=== PATIENT | female | born 1940 | race African-American/Black ===

== ENCOUNTER → 2019-08-06 | Outpatient (CLI) | payer BC ==
[~2019-08-06] MED LIST: ASPIRIN325; ATENOLOL 100MG100 M2 PO; BACTRIM DS TAB1 EACH PO; CALCIUM500 MG PO; FISH OIL 1,001000 M2 PO; IBUPROFEN 600600 M1 OR; IMDUR 60 MG TAB60 M1 PO; LISINOPRIL20 MG PO; NORVASC10 MG PO; OXYCODONE HCL 55 MG PO; PROMETHAZINE-C120 ML PO; PROVENTIL HFA6.7 G1 INH; VITAMIN D1000 UNI1 PO; ZANTAC 150MG T150 M1 PO; ZPAK PO
== END ==
LOC: SJCVCIMAG 09:22
PROVIDERS: ATTEND Internal Medicine
DX: I65.23 Occlusion and stenosis of bilateral carotid arteries (principal); I08.3 Combined rheumatic disorders of mitral, aortic and tricuspid valves; I11.9 Hypertensive heart disease without heart failure; I73.9 Peripheral vascular disease, unspecified; I70.1 Atherosclerosis of renal artery; E78.5 Hyperlipidemia, unspecified; Z87.891 Personal history of nicotine dependence

== ENCOUNTER → 2020-05-30 | Outpatient (CLI) | payer BC | LOC: SJCVC 11:17 | PROVIDERS: ATTEND Internal Medicine | DX: R94.31 Abnormal electrocardiogram [ECG] [EKG] (principal); I45.10 Unspecified right bundle-branch block; I49.1 Atrial premature depolarization; I25.10 Atherosclerotic heart disease of native coronary artery without angina pectoris; I65.23 Occlusion and stenosis of bilateral carotid arteries; I10 Essential (primary) hypertension; E78.5 Hyperlipidemia, unspecified; M19.90 Unspecified osteoarthritis, unspecified site; J84.9 Interstitial pulmonary disease, unspecified; I70.1 Atherosclerosis of renal artery; M06.9 Rheumatoid arthritis, unspecified; I70.208 Unspecified atherosclerosis of native arteries of extremities, other extremity; Z87.891 Personal history of nicotine dependence; Z79.899 Other long term (current) drug therapy ==

== ENCOUNTER → 2020-08-20 | Outpatient (CLI) | payer BC | LOC: SJCVC 11:23 | PROVIDERS: ATTEND Internal Medicine | DX: R94.31 Abnormal electrocardiogram [ECG] [EKG] (principal); I45.10 Unspecified right bundle-branch block; I25.10 Atherosclerotic heart disease of native coronary artery without angina pectoris; I10 Essential (primary) hypertension; E78.5 Hyperlipidemia, unspecified; M19.90 Unspecified osteoarthritis, unspecified site; J84.9 Interstitial pulmonary disease, unspecified; Z95.5 Presence of coronary angioplasty implant and graft; I73.9 Peripheral vascular disease, unspecified; M06.9 Rheumatoid arthritis, unspecified; I65.23 Occlusion and stenosis of bilateral carotid arteries; Z98.890 Other specified postprocedural states; Z82.49 Family history of ischemic heart disease and other diseases of the circulatory system; Z88.0 Allergy status to penicillin; Z88.8 Allergy status to other drugs, medicaments and biological substances; Z79.82 Long term (current) use of aspirin; Z79.899 Other long term (current) drug therapy; Z87.891 Personal history of nicotine dependence ==

== ENCOUNTER 2020-09-23 14:19 | Inpatient (IN) | payer BC ==
[~2020-09-23] VITALS: Ht 152.4 cm; Wt 35.8 kg
[2020-09-23 14:24] VITALS: BP 140/72
[2020-09-23 15:20] LABS: ABSOLUTE NEUTROPHILS 8.9 thou/uL (1.4-8.2); BASOPHILS 0.5 % (0.0-2.0); EOSINOPHILS 0.5 % (0.0-3.0); HEMOGLOBIN 7.4 gm/dL (12.0-15.0); MCH 24.4 pg (26.0-34.0); MCV 78.8 fL (80.0-100.0); MONOCYTES 8.7 % (1.0-8.0); PLATELET COUNT 345 thou/uL (150-400); POLYS 77.3 % (36.0-66.0); RBC 3.04 mil/uL (4.20-5.00); RDW 21.2 % (10.5-14.5); WBC 11.5 thou/uL (4.0-11.0)
[2020-09-23 15:31] LABS: CALCIUM 8.3 mg/dL (8.5-10.1); CREATININE 2.7 mg/dL (0.6-1.0); POTASSIUM 4.4 mmol/L (3.5-5.1)
[2020-09-23 15:38] LABS: TOTAL BILIRUBIN 0.4 mg/dL (0.2-1.0); TOTAL PROTEIN 7.9 g/dL (6.4-8.2)
[2020-09-23 15:53] LABS: ANISOCYTOSIS 2+; PLATELET ESTIMATE NORMAL
--- NOTE | 2020-09-23 16:02 | EKG ---
[place] [address] [place] [address] ELECTROCARDIOGRAM REPORT Name: STORM AYERS Room #: [facility] [id number] Admission: 09/23/20 Attend Phys: Discharge: Date of : 44 Report #: [id number] [facility] ED Test Date: 2020-09-23 Test Time: 15:18:37 Pat Name: STORM AYERS Department: Room: Gender: F Lamination Assembler: JOSUÉ : 1940 Requested By: Kaleb Dozier Order Number: [id number] MD: Gabriel Price Measurements Intervals [place] Rate: 97 P: 66 [place]: 120 QRS: -86 QRSD: 120 T: -9 QT: 371 QTc: 472 Interpretive Statements Sinus rhythm Probable left atrial enlargement IRBBB and LPFB Compared to ECG 06/12/2013 11:02:14 Left posterior fascicular block now present Incomplete right bundle-branch block now present T-wave abnormality no longer present Electronically Signed On 09-23-2020 16:02:43 CDT by Gabriel Price [email or web address] <ELECTRONICALLY SIGNED> By: Gabriel Price MD, [facility] 09/23/20 1602 1518 1518 Gabriel Price MD, [facility] /EPI
[2020-09-23 16:29] LABS: URINE BILIRUBIN NEGATIVE (Negative); URINE BLOOD NEGATIVE (Negative); URINE CLARITY SL CLOUDY; URINE COLOR YELLOW; URINE GLUCOSE-RANDOM* NEGATIVE (Negative); URINE KETONES NEGATIVE (Negative); URINE LEUKOCYTES-REFLEX NEGATIVE (Negative); URINE NITRITE-REFLEX NEGATIVE (Negative); URINE PROTEIN (DIPSTICK) 1+ (Negative); URINE UROBILINOGEN 0.2 E.U./dl (0.2-1.0)
[2020-09-23 16:43] LABS: AMORPHOUS URATES Many /LPF (None Seen); BACTERIA-REFLEX 1-9 Few /HPF (None Seen); SQUAMOUS 0-3 Few /LPF (0-3); URINE RBC 1-2 Rare /HPF (NONE SEEN); URINE WBC-REFLEX 0-5 Rare /HPF (0-5)
[2020-09-23 19:29] LABS: % SATURATION 11 % (20-39); IRON 11 ug/dL (50-170); TIBC 97 ug/dL (250-450)
[2020-09-23 19:58] LABS: FOLIC ACID 12.3 ng/mL (8.6-58.9)
[2020-09-23 22:20] VITALS: BP 151/71
[2020-09-23 22:41] VITALS: BP 122/65
[2020-09-24] VITALS (7 sets, daily range): BP systolic 93–164; BP diastolic 55–85
--- NOTE | 2020-09-24 02:56 | NUR ---
BEDSIDE REPORT RECEIVED FROM ED NURSE HARVINDER. PT TRANSFERRED TO UNIT WITH NO SIGNS OF RESPIRATORY DISTRESS. PT AAOX3, C/O DRY COUGH AND HEARTBURN. VITAL SIGNS STABLE AND FALL PREVENTION INTERVENTIONS IN PLACE. PLAN OF CARE EXPLAINED TO PT AND VERBALIZE UNDERSTANDING.
[2020-09-24 03:34] LABS: ABSOLUTE NEUTROPHILS 6.4 thou/uL (1.4-8.2); EOSINOPHILS 1.1 % (0.0-3.0); HEMATOCRIT 21.1 % (37.0-47.0); HEMOGLOBIN 6.8 gm/dL (12.0-15.0); MCHC 32.3 g/dL (28.0-37.0); RBC 2.73 mil/uL (4.20-5.00)
[2020-09-24 03:35] LABS: BASOPHILS 0.7 % (0.0-2.0); LYMPHOCYTES 15.6 % (24.0-44.0); MCV 77.5 fL (80.0-100.0); MONOCYTES 9.8 % (1.0-8.0); PLATELET COUNT 277 thou/uL (150-400); POLYS 72.8 % (36.0-66.0); RDW 21.5 % (10.5-14.5); WBC 8.8 thou/uL (4.0-11.0)
[2020-09-24 04:01] LABS: CALCIUM 7.8 mg/dL (8.5-10.1); CREATININE 2.3 mg/dL (0.6-1.0); MAGNESIUM 1.8 mg/dL (1.8-2.4); TROPONIN-I 0.06 ng/mL (<0.06)
--- NOTE | 2020-09-24 08:42 | EKG ---
[place] [address] [facility] [place] [address] ELECTROCARDIOGRAM REPORT Name: STORM AYERS Room #: 218-P ADM IN M.R.#: [id number] Admission: 09/23/20 Attend Phys: Tang Santoro MD Discharge: Date of : 44 Report #: [id number] [facility] Test Date: 2020-09-24 Test Time: 07:45:58 Pat Name: STORM AYERS Department: Room: 218 P Gender: F Chief Gauger: WERNER : 1940 Requested By: Eleni Toney Order Number: [id number] MD: Ivan Buckley Measurements Intervals [place] Rate: 104 P: 67 DC: 128 QRS: -74 QRSD: 113 T: -8 QT: 369 QTc: 486 Interpretive Statements Sinus tachycardia Atrial premature complex IRBBB and LPFB Borderline prolonged QT interval Compared to ECG 09/23/2020 15:18:37 Atrial premature complex(es) now present Electronically Signed On 09-24-2020 8:42:12 CDT by Ivan Buckley [email or web address] <ELECTRONICALLY SIGNED> By: Ivan Buckley MD, [facility] 09/24/20 0842 Ivan Buckley MD, [facility] /EPI
--- NOTE | 2020-09-24 17:46 | NUR ---
Case opened to follow for dc planning. Yard Warehouse Worker visited with the pt and her dtr Jordana at bedside. The pt is a&x3 but forgetful. She indicates that she was on service with [facility] prior to admission. She has a rwalker and cane at home. Her gson and dtr are staying with her. She can stay on the main level and has a couple of steps in from the garage. She is being treated for acute copd/chf/anemia with hgb 6.8. Therapy evals are pending. Pt getting blood tx today and EGD tomorrow. She is being seen by ST and they recommended a video swallow but mech soft with thin liquids with supervision. She has had multiple hospital stays at [facility] in the past few months. Her pcp is Dr. [place] Farmer. [facility] accept for readmission [place]. Pt does not want to go to SNF. Dtr calling to verify her [employer] medicare info as the cards in her wallet have . [place] [id number] was provided by the dtr and passed on to UR for admitting to verify. Will f/u should snf be recommended.
--- NOTE | 2020-09-24 20:35 | NUR ---
ASSESSMENT CHARTED - MEDS PER MAR - NO CO'S OF NAUSEA - STATED RIGHT WRIST AREA HURTS IF TOUCHED. PT INCONTINET OF URINE - MEPILEX TO SACRAL AREA RENAL ULTRASOUND COMPLETED. CONSULTS NOTED. PT WITH NO STOOL TO SEND TO LAB AND IS INCONT URINE. PT WITH HG 6.8 TRANSFUED 1 UNIT OF PRBC - PT TOLERATD WELL. EATING ONLY SMALL AMOUNTS OF FOOD - STATES NOT VERY HUNGRY. IV FLUIDS CONT ORDERED - DAUGHTER AT THE BEDSIDE. NO CO'S AT THE PRESENT TIME.
[2020-09-25 03:03] LABS: HEMATOCRIT 24.5 % (37.0-47.0); MCH 26.5 pg (26.0-34.0); MCHC 32.6 g/dL (28.0-37.0); MCV 81.4 fL (80.0-100.0); RBC 3.01 mil/uL (4.20-5.00); RDW 20.7 % (10.5-14.5); WBC 7.9 thou/uL (4.0-11.0)
[2020-09-25 03:30] LABS: ALBUMIN 1.6 g/dL (3.4-5.0); CALCIUM 7.6 mg/dL (8.5-10.1); CREATININE 2.2 mg/dL (0.6-1.0); PHOSPHORUS 3.1 mg/dL (2.5-4.9); POTASSIUM 4.1 mmol/L (3.5-5.1)
[2020-09-25 04:00] VITALS: BP 113/70
--- NOTE | 2020-09-25 06:36 | NUR ---
PATIENT REMAINS A/OX4. DENIES PAIN. SOA.N/V, DAUGHTER AT THE BEDSIDE. AFEBRILE.VSS. INCONTINENT. BATH GIVEN. DENIES NEEDS. WILL KEEP MONITORING.
--- NOTE | 2020-09-25 08:05 | EKG ---
[place] [address] [facility] [place] [address] ELECTROCARDIOGRAM REPORT Name: STORM AYERS Room #: 218-P ADM IN M.R.#: [id number] Admission: 09/23/20 Attend Phys: Tang Santoro MD Discharge: Date of : 42 Report #: [id number] [facility] Test Date: 2020-09-25 Test Time: 07:32:44 Pat Name: STORM AYERS Department: Room: 218 P Gender: F Vessel Slag Worker: FANG : 1940 Requested By: Ivan Buckley Order Number: [id number] MD: Ivan Buckley Measurements Intervals [place] Rate: 94 P: 57 [place]: 129 QRS: -70 QRSD: 117 T: -5 QT: 376 QTc: 471 Interpretive Statements Sinus rhythm IRBBB and LPFB Inferior infarct, old Baseline wander in lead(s) II,aVR,aVF Compared to ECG 09/24/2020 07:45:58 Atrial premature complex(es) no longer present Electronically Signed On 09-25-2020 8:05:34 CDT by Ivan Buckley [email or web address] <ELECTRONICALLY SIGNED> By: Ivan Buckley MD, [facility] 09/25/20 0805 0732 Ivan Buckley MD, [facility] /EPI
[2020-09-25 08:53] VITALS: BP 155/70
[2020-09-25 12:19] VITALS: BP 145/73
[2020-09-25 13:48] LABS: URINE BILIRUBIN NEGATIVE (Negative); URINE BLOOD NEGATIVE (Negative); URINE CLARITY CLEAR; URINE COLOR YELLOW; URINE GLUCOSE-RANDOM* NEGATIVE (Negative); URINE KETONES NEGATIVE (Negative); URINE LEUKOCYTES TRACE (Negative); URINE NITRITE NEGATIVE (Negative); URINE PROTEIN (DIPSTICK) TRACE (Negative); URINE UROBILINOGEN 0.2 E.U./dl (0.2-1.0)
[2020-09-25 13:54] LABS: URINE CREATININE-RANDOM* 103.1 mg/dL; URINE PROTEIN-RANDOM* 78.3 mg/dL (<11.9)
[2020-09-25 17:16] VITALS: BP 165/73
--- NOTE | 2020-09-25 18:28 | NUR ---
F/u dc planning visit with pt and dtr at bedside. Pt sleeping off/on. Dtr provided updated ins info which was passed on to UR/admitting for verification of her [employer] medicare plan [id number]. SNF referrals discussed. Pt is very weak and dtr indicates family is not able to provide for her care needs. They would like to consider [facility] and maybe [facility] or [facility]. Referral faxed to [facility] and onsite visit requested for tomorrow. Will follow.
[2020-09-25 19:34] VITALS: BP 161/57
--- NOTE | 2020-09-25 19:59 | NUR ---
ASSESSMENT CHARTED - MEDS PER MAR - JUAREZ ONLY SMALL AMOUNTS OF DIET AND FLUIDS. DOES LIKE SUPPLEMENT BEVERAGES. AMBULATED TO THE BATHROOM WITH PHYS THERAPY ASSIST. UP TO THE BSC WITH ASSIST - CONTINUES TO BE INCONTINENT AT TIMES. URIINE SPEC SENT TO LAB. MEPILEX TO SACRUM CAME OFF REDDENED AREA PRESENT. PT GIVEN COUGH MED THIS AM WHICH SHE STATES DID NOT HELP. FLUIDS D/C'D AND NORVASC DECREASED TO 5 MGS DOSE - DAUGHTER AT THE BEDSIDE FOR MOST OF THE DAY. NO CO'S AT THE PRESENT TIME.
--- NOTE | 2020-09-26 00:58 | NUR ---
0010 SPOKE WITH DAUGHTER DESTINY FOR 10 MIN ABOUT MOMS STATUS AND AWAITING REHAB VS SNIF.
[2020-09-26 04:01] LABS: ALBUMIN 1.7 g/dL (3.4-5.0); CALCIUM 7.4 mg/dL (8.5-10.1); CREATININE 2.4 mg/dL (0.6-1.0); PHOSPHORUS 3.8 mg/dL (2.5-4.9); POTASSIUM 4.7 mmol/L (3.5-5.1)
[2020-09-26 05:01] VITALS: BP 155/77
--- NOTE | 2020-09-26 05:30 | NUR ---
SLEPT MOST OF SHIFT. DENIES COMPLAINTS OF PAIN. STATES IS TIRED. WORKING ON GOALS AND PLAN OF CARE FOR NOC. ASSISTED UP TO COMODE WITH ASSIST OF ONE NEEDED. DENIES NEED FOR COUGH MEDICATION. CONTINUE TO ASSSTEPH BURCIAGA.
[2020-09-26 08:00] VITALS: BP 110/60
--- NOTE | 2020-09-26 11:27 | NUR ---
[facility] HERE AND HAS ACCEPTED THE PT FOR SNF PENDING INS AUTH. THEY ARE SUBMITTING TODAY. CLINICAL PROVIDED. THEY CAN ACCEPT OVER THE WEEKEND IF AUTH OBTAINED OTHER ISAACS ON TUESDAY.
[2020-09-26 11:40] VITALS: BP 137/55
--- NOTE | 2020-09-26 16:48 | NUR ---
ASSUMED CARE SHIFT CHANGE. VSS, DENIES PAIN .O2 SATS WNL 1-2L. PT UP WITH PHYS THERAPY JUAREZ WELL. DAUGHTER VISITED WITH PT. AT APPROX 1230 PT AND DAUGHTER REPORTED TO MANAGER OUTREACH MISSING MONEY FROM PT'S PURSE. RISK MANAGEMENT NOTIFIED. PUBLIC SAFETY NOTIFIED. PT SKIN INTACT, ZGUARD APPLIED TO BOTTOM FOR SKIN PROTECTION. CURRENTLY LYING AWAKE IN BED, DAUGHTER AT BEDSIDE DISCUSSING WITH CUTTER OPERATOR. CONT POC. WILL PASS REPORT TO NOC RN.
[2020-09-26 20:44] VITALS: BP 120/58
[2020-09-27 04:32] LABS: ALBUMIN 1.6 g/dL (3.4-5.0); CALCIUM 7.1 mg/dL (8.5-10.1); CREATININE 2.9 mg/dL (0.6-1.0); PHOSPHORUS 3.2 mg/dL (2.5-4.9); POTASSIUM 4.7 mmol/L (3.5-5.1)
[2020-09-27 04:46] LABS: HEMATOCRIT 22.5 % (37.0-47.0); HEMOGLOBIN 7.4 gm/dL (12.0-15.0); MCH 26.9 pg (26.0-34.0); MCHC 32.8 g/dL (28.0-37.0); MCV 82.2 fL (80.0-100.0); RBC 2.74 mil/uL (4.20-5.00); RDW 22.1 % (10.5-14.5); WBC 10.9 thou/uL (4.0-11.0)
[2020-09-27 05:28] VITALS: BP 144/74
[2020-09-27 09:39] VITALS: BP 147/59
[2020-09-27 12:00] VITALS: BP 140/59
[2020-09-27 16:33] VITALS: BP 126/56
[2020-09-27 19:25] VITALS: BP 143/55
--- NOTE | 2020-09-27 19:47 | NUR ---
RN ASSUMED PT'S CARE AT 0700-1900PM, PT IS A&OX4, PT IS ON O2 1L/MIN/NC, PT'S VS ARE STABLE, PT IS CONTINUING IV ABX, PT DENIES PAIN AND SOB, BUT PT STILL IS WEAK, PT NEEDS HELP ADL. PT MAY DC TO SNF TOMORROW.
[2020-09-28 03:05] VITALS: BP 125/68
[2020-09-28 04:10] LABS: ALBUMIN 1.6 g/dL (3.4-5.0); CALCIUM 7.2 mg/dL (8.5-10.1); CREATININE 2.9 mg/dL (0.6-1.0); PHOSPHORUS 2.7 mg/dL (2.5-4.9); POTASSIUM 4.9 mmol/L (3.5-5.1)
[2020-09-28 07:48] VITALS: BP 168/85
--- NOTE | 2020-09-28 08:01 | NUR ---
SLEPT MOST OF SHIFT. ASSIST UP TO COMODE NEEDED. WORKING ON GOALS AND PLAN OF CARE FOR NOC. CONTINUE TO ASSES.
[2020-09-28 11:21] VITALS: BP 160/76
[2020-09-28] MEDS ORDERED: CARVEDILOL25 MG PO (13:26)
[2020-09-28] MEDS ORDERED: PROTONIX 20 MG20 M1 PO (13:26)
[2020-09-28] MEDS ORDERED: PREDNISONE 10 M10 MG PO (13:26)
--- NOTE | 2020-09-28 17:04 | NUR ---
assumed care of pt at 0700. pt aox4 weak no acute distress. maintains spo2 on room air. notified of bed availability at [facility]. ok for discharge per hospitalist. report called to gerardo at [facility] SNF.
== END 2020-09-28 17:20 | DRG 811 ==
LOC: ER 14:19 → 2N 18:30 → EROBS 18:30 → 2N 22:57
PROVIDERS: Hospitalist; Internal Medicine; Nurse Practitioner; ADMIT Hospitalist; ATTEND Hospitalist
PROC: 30233N1 Transfusion of Nonautologous Red Blood Cells into Peripheral Vein, Percutaneous Approach (ICD-10-PCS; principal; 2020-09-24)
DX: D50.0 Iron deficiency anemia secondary to blood loss (chronic) (principal); J18.9 Pneumonia, unspecified organism; N17.9 Acute kidney failure, unspecified; I13.0 Hypertensive heart and chronic kidney disease with heart failure and stage 1 through stage 4 chronic kidney disease, or unspecified chronic kidney disease; E78.5 Hyperlipidemia, unspecified; I25.10 Atherosclerotic heart disease of native coronary artery without angina pectoris; M06.9 Rheumatoid arthritis, unspecified; I73.9 Peripheral vascular disease, unspecified; N18.9 Chronic kidney disease, unspecified; R77.8 Other specified abnormalities of plasma proteins; R53.81 Other malaise; I50.9 Heart failure, unspecified; N39.41 Urge incontinence; R13.10 Dysphagia, unspecified; D86.89 Sarcoidosis of other sites; I70.1 Atherosclerosis of renal artery; Z20.822 Contact with and (suspected) exposure to COVID-19; Z79.899 Other long term (current) drug therapy; Z79.82 Long term (current) use of aspirin; Z95.5 Presence of coronary angioplasty implant and graft; Z88.0 Allergy status to penicillin
CPT/HCPCS: 10081

== ENCOUNTER → 2020-11-28 | Outpatient (CLI) | payer OTHER, BC ==
[~2020-11-28] MED LIST changes: +CARVEDILOL25 MG PO; +PREDNISONE 10 M10 MG PO; +PROTONIX 20 MG20 M1 PO
== END ==
LOC: SJCVCIMAG 07:55
PROVIDERS: ATTEND Internal Medicine
DX: I08.3 Combined rheumatic disorders of mitral, aortic and tricuspid valves (principal); I25.10 Atherosclerotic heart disease of native coronary artery without angina pectoris; I10 Essential (primary) hypertension; E78.5 Hyperlipidemia, unspecified; M19.90 Unspecified osteoarthritis, unspecified site; J84.9 Interstitial pulmonary disease, unspecified; Z87.891 Personal history of nicotine dependence; Z79.899 Other long term (current) drug therapy; Z88.0 Allergy status to penicillin; Z88.8 Allergy status to other drugs, medicaments and biological substances

== ENCOUNTER 2020-12-23 11:10 | Inpatient (IN) | payer MEDICARE ==
[~2020-12-23] VITALS: Ht 162.6 cm; Wt 47.1 kg
--- NOTE | ~2020-12-23 | EEG ---
[facility] [place] [address] ELECTROENCEPHALOGRAM Name: STORM AYERS Room #: 241-P [facility] IN M.R.#: [id number] Admission: 12/23/20 Attend Phys: Sury Manzanares MD Discharge: Date of : 42 Report #: [id number] THIS REPORT FOR: //name// DATE OF SERVICE: 12/29/2020 This patient is being evaluated for altered mental status. EEG was done by placing the electrode by standard 10-20 system of electrode placement. Both referential and sequential montages were used for recording. Background activity in this patient's EEG was about 6-7 Hz and many times it is slower than that. It is about 15-20 microvolts. No active epileptiform activity was noticed. Photic stimulation is unremarkable. IMPRESSION: This is an abnormal EEG because it is disorganized and poorly formed. That is the nonspecific finding which can occur with encephalopathy, effect of psychotropic medication, dementia, etc. Clinical correlation is recommended. By: 1456 1519 Star Scanlon MD /nt
[2020-12-23 11:10] VITALS: BP 194/110
[2020-12-23 11:50] LABS: ABSOLUTE NEUTROPHILS 7.5 thou/uL (1.4-8.2); BASOPHILS 0.5 % (0.0-2.0); EOSINOPHILS 0.1 % (0.0-3.0); HEMATOCRIT 26.9 % (37.0-47.0); HEMOGLOBIN 8.5 gm/dL (12.0-15.0); LYMPHOCYTES 7.3 % (24.0-44.0); MCH 27.1 pg (26.0-34.0); MCHC 31.5 g/dL (28.0-37.0); MONOCYTES 7.5 % (1.0-8.0); PLATELET COUNT 278 thou/uL (150-400); POLYS 84.6 % (36.0-66.0); RBC 3.13 mil/uL (4.20-5.00); RDW 16.6 % (10.5-14.5); WBC 8.8 thou/uL (4.0-11.0)
[2020-12-23 12:00] LABS: CALCIUM 8.6 mg/dL (8.5-10.1); POTASSIUM 4.4 mmol/L (3.5-5.1)
[2020-12-23 12:13] LABS: ALBUMIN 2.4 g/dL (3.4-5.0); TOTAL BILIRUBIN 0.6 mg/dL (0.2-1.0); TOTAL PROTEIN 8.5 g/dL (6.4-8.2)
[2020-12-23 14:35] LABS: APTT 32.5 Seconds (24.5-32.8); INR 1.13; PROTIME 12.2 Seconds (10.5-12.1)
[2020-12-23 15:21] LABS: % SATURATION 16 % (20-39); IRON 31 ug/dL (50-170); TIBC 193 ug/dL (250-450)
[2020-12-23 17:19] VITALS: BP 161/90
[2020-12-23 17:25] VITALS: BP 161/95
[2020-12-23 18:06] VITALS: BP 178/110; BP 1786/10
--- NOTE | 2020-12-23 19:02 | NUR ---
Patient arrived to the unit at approximtely 1600. She is alert and oriented. She arrived on the unit with a heparin drip. Patient reports that she is incontinent sometimes. Patient is weak and appears to be short of breath. Patient reports that she is having chest pain. Nitro given per order. Patient will continue to be monitored.
[2020-12-23 20:01] VITALS: BP 178/92
[2020-12-24] VITALS (13 sets, daily range): BP systolic 70–185; BP diastolic 43–101
[2020-12-24 06:51] LABS: HEMOGLOBIN 6.9 gm/dL (12.0-15.0); LYMPHOCYTES 5.7 % (24.0-44.0)
[2020-12-24 06:53] LABS: ABSOLUTE NEUTROPHILS 6.3 thou/uL (1.4-8.2); BASOPHILS 0.3 % (0.0-2.0); HEMATOCRIT 21.2 % (37.0-47.0); MCHC 32.4 g/dL (28.0-37.0); MCV 86.2 fL (80.0-100.0); MONOCYTES 2.7 % (1.0-8.0); PLATELET COUNT 227 thou/uL (150-400); POLYS 91.3 % (36.0-66.0); RBC 2.46 mil/uL (4.20-5.00); RDW 16.9 % (10.5-14.5); WBC 6.9 thou/uL (4.0-11.0)
[2020-12-24 06:54] LABS: CALCIUM 7.9 mg/dL (8.5-10.1); CREATININE 4.3 mg/dL (0.6-1.0); POTASSIUM 5.2 mmol/L (3.5-5.1)
[2020-12-24 06:55] LABS: MAGNESIUM 2.2 mg/dL (1.8-2.4)
--- NOTE | 2020-12-24 07:30 | NUR ---
Dr. Dillon called back for consult at shift change and will see pt. Pt. able to answer orientation questions. Luz Maria Silveira visited last night. Pt. does not remember home meds, unable to verify. Luz Maria Silveira will bring list today . MRSA swab sent to lab.O2 at 2L/NC with O2 sat in the upper 90's to 100%. She does get short of breath with exertion. Critical lactic acid called to MOTEL MAID. Pt. has been afebrile. Denies chest pain thougn c/o right arm pain stating it might be her arthritis. Wrapped with warm blanket and stated it helped. Kept NPO until seen by ST. Oral care given and lip moisturizer provided to pt. C/O nausea , zofran given x 1 with good relief. No c/o since. ST per tele at beginning of shift with elevated BP. Scheduled IV metoprolol and ntg paste given. SR in the 80's after tx. Incontinent of small amount of urine and had small amount of bm in brief around 2230. Lr cath placed for accurate I/O. Low urine output this shift , emptied 25 ml. MOTEL MAID notified. NS 500 bolus over 2 hrs given this am. IV on right AC leaking. Left AC IV came out and bleeding. New IV on right FA started and am labs drawn and sent to lab. Assisted to reposition for comfort. Pt. status changed to CCT this am. Report given to 2N RN (pt. being transferred due to staffing). Transferred to room 219 with all her belongings (purse,cell phone, cane, clothes). Luz Maria Silveira called to get an update on pt. Informed her that pt. is being transferred to another floor. Left her a message per her request regarding room no. Heparin gtt. infusing , no active bleeding except when left AC IV came out. Pressure applied for few minutes then covered with gauze and wrapped with coban after hemostasis achieved. Transferred to [facility] around 0625.
--- NOTE | 2020-12-24 08:18 | NUR ---
0640 TX FROM 3W PER BED. PATIENT SETTLED IN ROOM, MONITOR ON PAST REPORT FROM 3W RN. CONTINUE TO ASSES.
--- NOTE | 2020-12-24 08:26 | EKG ---
[place] [address] [facility] [place] [address] ELECTROCARDIOGRAM REPORT Name: ADELITA AYERSIE Sayra Room #: 219-P ADM IN M.R.#: [id number] Admission: 12/23/20 Attend Phys: Sury Manzanares MD Discharge: Date of : 42 Report #: [id number] [facility] Test Date: 2020-12-23 Test Time: 11:50:27 Pat Name: STORM AYERS Department: Room: 219 Gender: F Bag Press Operator: DAJA : 1940 Requested By: Brandyn Stiles Order Number: [id number] MD: Ivan Buckley Measurements Intervals [place] Rate: 118 P: 54 [place]: 123 QRS: -61 QRSD: 82 T: -82 QT: 376 QTc: 528 Interpretive Statements Sinus tachycardia leftward axis ST and T wave abnormality Prolonged QT interval Compared to ECG 09/25/2020 07:32:44 right bundle branch block is no longer present ST and T wave abnormality is more pronounced Electronically Signed On 12-24-2020 8:26:34 CDT by Ivan Buckley [email or web address] <ELECTRONICALLY SIGNED> By: Ivan Buckley MD, [facility] 12/24/20 0826 1150 1150 Ivan Buckley MD, [facility] /EPI
--- NOTE | 2020-12-24 08:28 | EKG ---
[place] [address] [facility] [place] [address] ELECTROCARDIOGRAM REPORT Name: STORM AYERS Room #: 219-P ADM IN M.R.#: [id number] Admission: 12/23/20 Attend Phys: Sury Manzanares MD Discharge: Date of : 42 Report #: [id number] [facility] ED Test Date: 2020-12-23 Test Time: 12:23:52 Pat Name: STORM AYERS Department: Room: 219 Gender: F Splash Line Operator: DAJA : 1940 Requested By: Brandyn Stiles Order Number: [id number] MD: Ivan Buckley Measurements Intervals [place] Rate: 116 P: 59 [place]: 122 QRS: -71 QRSD: 73 T: -77 QT: 378 QTc: 526 Interpretive Statements Sinus tachycardia frequent atrial premature complexes leftward axis ST and T wave abnormality Prolonged QT interval Compared to ECG 12/23/2020 11:50:27 atrial premature complexes are now present Electronically Signed On 12-24-2020 8:28:08 CDT by Ivan Buckley [email or web address] <ELECTRONICALLY SIGNED> By: Ivan Buckley MD, [facility] 12/24/20 22 22 Ivan Buckley MD, [facility] /EPI
--- NOTE | 2020-12-24 20:03 | NUR ---
AT APPROX 1700 PATIENT STARTED TO C/O CHEST PAIN WITH PRESSURE 7/10. CARDIOLOGY MADE AWARE, ORDERS TO GIVE ORAL PAIN MEDCIATION ORDERED, NO OTHER INTERVENTION. DR HENRIQUEZ MADE AWARE OF ZERO OUTPUT FROM MAO CATHETER, ORDERS RECEIVED TO GIVE 250 ML NS BOLUS. NEPHROLOGY ALSO MADE AWARE OF ZERO URINE OUTPUT, ORDERS GIVEN TO GIVE THE 250 NS BOLUS AND CONTINUE LR THAT WAS ORDERED THROUGHTOUT THE NIGHT.
[2020-12-24 21:35] LABS: BE(vivo) -12.1 mmol/L (-2 to +3); HCO3 14.1 mmol/L (22.0-26.0); PCO2 32.9 mmHg (35.0-45.0); PO2 54.4 mmHg (80.0-100.0); sO2 83.6 % (92.0-98.0)
[2020-12-24 21:36] LABS: pH 7.249 (7.360-7.450)
[2020-12-24 21:38] LABS: ABSOLUTE NEUTROPHILS 14.2 thou/uL (1.4-8.2); BASOPHILS 0.2 % (0.0-2.0); HEMATOCRIT 25.2 % (37.0-47.0); HEMOGLOBIN 7.7 gm/dL (12.0-15.0); MCH 26.7 pg (26.0-34.0); MCHC 30.6 g/dL (28.0-37.0); MCV 87.4 fL (80.0-100.0); MONOCYTES 7.3 % (1.0-8.0); PLATELET COUNT 272 thou/uL (150-400); POLYS 87.5 % (36.0-66.0); RBC 2.88 mil/uL (4.20-5.00); RDW 16.3 % (10.5-14.5); WBC 16.2 thou/uL (4.0-11.0)
[2020-12-24 21:56] LABS: ALBUMIN 2.1 g/dL (3.4-5.0); CALCIUM 7.4 mg/dL (8.5-10.1); CREATININE 4.8 mg/dL (0.6-1.0); POTASSIUM 5.6 mmol/L (3.5-5.1); TOTAL BILIRUBIN 0.6 mg/dL (0.2-1.0); TOTAL PROTEIN 6.9 g/dL (6.4-8.2)
--- NOTE | 2020-12-24 22:29 | NUR ---
STRUCTURAL METAL FABRICATOR APPRENTICE ACTIVATED FOR HYPOTENSION, DECREASED LOC, INCREASED O2 DEMANDS AND GENERAL DECOMPENSATION. JACQUELNIE TO BEDSIDE, PT TRANSFERRED TO ICU ROOM 241 WITH BELONGINGS. PT'S FAMILY UPDATED.
--- NOTE | 2020-12-24 23:19 | NUR ---
2124 AT BEDSIDE PASSING MEDICATIONS. PATIENT TALKING WITH NURSE. SUDDENLY STARTS FLAILING ARMS SAYS HELP ME. BECOMING LESS RESPONSIVE COULD ONLY STATE NAME AND BIRTHDAY. NOTICED O2 SAT NOW 84% ON 2L. O2 INCREASED TO 4L, BP TAKEN 70/42. DRY CELL ASSEMBLY SUPERVISOR CALLED. SEE INTERVENTION FOR FURTHER DATA. DAUGHTER CALLED FOR UPDATE AND INFORMED OF RESPIRATORY DISTRESS. ON WAY TO HOSPITAL. 2149 PATIENT NOW ON 100% NRB AND TRANSFERED TO ICU BED 241. REPORT GIVEN AT BEDSIDE TO BOTTOM SANDER. DAUGHTER WAITING IN WAITING ROOM. BOTTOM SANDER WILL UPDATE.
[2020-12-25] VITALS (64 sets, daily range): BP systolic 79–174; BP diastolic 27–93
[2020-12-25 00:32] LABS: BE(vivo) -9.3 mmol/L (-2 to +3); HCO3 17.4 mmol/L (22.0-26.0); PCO2 41.6 mmHg (35.0-45.0); PO2 470.6 mmHg (80.0-100.0); sO2 99.8 % (92.0-98.0)
--- NOTE | 2020-12-25 01:34 | NUR ---
PT TRANSFERED FROM TO ICU AROUND 0, AFTER TRAP SETTER WAS ACTIVATED ON DUE TO HYPOTENSION, CHANGE IN MENTAL STATUS, AND HYPOXIA. UPON ARRIVAL, SBP 60S-70S. LEVOPHED GTT INITIATED. PT WAS INITIALLY LETHARGIC BUT ARROUSABLE TO VERBAL OR TACTILE STIMULI. UNABLE TO OBTAIN TEMPERATURE DUE TO HYPOTHERMIA. VINAY HUGGER WARMING BLANKET PLACED ON PT. PT HAD SHALLOW BREATHING BUT SPO2 STABLE ON NRB MASK. JACQUELINE VALERO NP, AT BEDSIDE. PT'S DTR BRANDAN WAS PRESENT AND UPDATED ON PT CONDITION. SHE STATED THAT HER MOTHER WOULD WANT EVERYTHING DONE TO SAVE HER, INCLUDING INTUBATION IF NEEDED. DR BOWER (RENAL) UPDATED ON PT STATUS. HE WAS AGREEABLE TO CURRENT PLAN. HE WAS INFORMED OF LOW URINE OUTPUT. MAO FLUSHED FOR PATENCY PER DR BOWER REQUEST. PT BECAME INCREASINGLY LESS RESPONSIVE AND WAS INTUBATED BY DR KEEN (ER PROVIDER). SHE TOLERATED INTUBATION WELL. JACQUELINE VALERO NP, PLACED RIGHT RADIAL ARTERIAL LINE. ARTERIAL LINE SBP 120S-140S. CVP MONITORING INITIATED PER DR RENTERIA ORDER. BILATERAL WRIST RESTRAINTS APPLIED TO PREVENT PT FROM PULLING AT ETT OR LINES. BOLIVAR PHILLIPS NOTIFIED OF POST-INTUBATION ABG RESULTS. DTLUISA GIPSON AND KEITH BOTH AT BEDSIDE AND UPDATED ON POC. WILL CONTINUE TO MONITOR FURTHER.
--- NOTE | 2020-12-25 01:44 | NUR ---
DTR BRANDAN TOOK HOME ALL OF PT BELONGINGS, INCLUDING CLOTHES, PURSE, AND CELL PHONE.
--- NOTE | 2020-12-25 05:36 | NUR ---
PT REMAINS ON LEVOPHED AND VASOPRESSIN GTTS FOR BP SUPPORT. PT GRIMACES WITH NOXIOUS STIMULI. NO EXTRA SEDATION NEEDED AT THIS TIME PT IS RESTING CALMLY IN BED AND TOLERATING VENT WELL. FIO2 TITRATED DOWN TO 50%. OGT TO LIS. MAO TO DD WITH MINIMAL URINE OUTPUT. NOT PROGRESSING WELL TOWARD POC GOALS. WILL MONITOR FURTHER AND GIVE REPORT TO ONCOMING NURSE.
[2020-12-25 05:38] LABS: BE(vivo) -4.6 mmol/L (-2 to +3); HCO3 19.3 mmol/L (22.0-26.0); PCO2 30.5 mmHg (35.0-45.0); PO2 206.4 mmHg (80.0-100.0); pH 7.419 (7.360-7.450); sO2 99.4 % (92.0-98.0)
[2020-12-25 06:19] LABS: ABSOLUTE RETIC COUNT 0.0503 10^6/uL; OBSERVED RETIC COUNT 1.87 % (0.6-2.6)
--- NOTE | 2020-12-25 07:11 | EKG ---
[place] [address] [place] [address] ELECTROCARDIOGRAM REPORT Name: STORM AYERS Room #: 241-P ADM IN M.R.#: [id number] Admission: 12/23/20 Attend Phys: Sury Manzanares MD Discharge: Date of : 44 Report #: [id number] [facility] Test Date: 2020-12-24 Test Time: 21:40:32 Pat Name: STORM AYERS Department: Room: 241 Gender: F Transfer And Pumphouse Operator: VERO : 1940 Requested By: Riri Kelly Order Number: [id number] MD: Gabriel Price Measurements Intervals [place] Rate: 62 P: 69 [place]: 122 QRS: 119 QRSD: 99 T: -82 QT: 559 QTc: 568 Interpretive Statements Sinus rhythm Multiform ventricular premature complexes Low voltage, extremity leads Abnormal R-wave progression, early transition Abnrm T, probable ischemia, anterolateral lds ST elevation, consider lateral injury Prolonged QT interval Compared to ECG 12/23/2020 12:23:52 Low QRS voltage now present Possible ischemia now present ST (T wave) deviation now present Myocardial infarct finding now present Sinus tachycardia no longer present Electronically Signed On 12-25-2020 7:11:32 CDT by Gabriel Price [email or web address] <ELECTRONICALLY SIGNED> By: Gabriel Price MD, [facility] 12/25/20710 39 39 Gabriel Price MD, [facility] /EPI
[2020-12-25 07:15] LABS: ALBUMIN 1.8 g/dL (3.4-5.0); CALCIUM 7.1 mg/dL (8.5-10.1); CREATININE 4.8 mg/dL (0.6-1.0)
--- NOTE | 2020-12-25 07:40 | NUR ---
ORDERS FOR EVAL AND TREAT HOWEVER Pt TRANSFERRED TO ICU LAST PM. WILL PLACE ON HOLD AND AWAIT NEW ORDERS WHEN APPROPRIATE
--- NOTE | 2020-12-25 08:55 | EKG ---
[place] [address] [facility] [place] [address] ELECTROCARDIOGRAM REPORT Name: STORM AYERS Room #: 241-P ADM IN M.R.#: [id number] Admission: 12/23/20 Attend Phys: Sury Manzanares MD Discharge: Date of : 44 Report #: [id number] [facility] Test Date: 2020-12-25 Test Time: 07:16:27 Pat Name: STORM AYERS Department: Room: 241 P Gender: F Embedded Systems Designer: NATASHA : 1940 Requested By: Ivan Buckley Order Number: [id number] MD: Ivan Buckley Measurements Intervals [place] Rate: 75 P: 73 [place]: 114 QRS: -35 QRSD: 123 T: 80 QT: 465 QTc: 520 Interpretive Statements Sinus rhythm Borderline short VA interval Right bundle branch block Abnormal T, probable ischemia, lateral leads Compared to ECG 12/24/2020 21:40:32 Right bundle-branch block now present Ventricular premature complex(es) no longer present Electronically Signed On 12-25-2020 8:55:45 CDT by Ivan Buckley [email or web address] <ELECTRONICALLY SIGNED> By: Ivan Buckley MD, [facility] 12/25/20 0855 5 5 Ivan Buckley MD, [facility] /EPI
--- NOTE | 2020-12-25 10:00 | NUR ---
PT SBP IS 70-80s. DR. RENTERIA ON UNIT. MAP IS GREATER THAN 60. DR. RENTERIA INSTRUCTED TO STOP FENTANYL TO SEE IF BP IMPROVES. USE VERSED IF NEEDED. NO VERSED STARTED AT THIS TIME. WILL CONTINUE TO MONITOR.
--- NOTE | 2020-12-25 11:50 | 2DMMODE ---
[facility] [place] [address] 2 D/M-MODE ECHOCARDIOGRAM Name: STORM AYERS Room #: 241-P ADM IN M.R.#: [id number] Admission: 12/23/20 Attend Phys: Sury Manzanares MD Discharge: Date of : 42 Report #: [id number] THIS REPORT FOR: cc: FAM - No family physician/PCP FAM - No family physician/PCP Iavn Buckley MD [facility] ~ APPROVED REPORT Study performed: 12/25/2020 09:55:01 EXAM: Limited 2D, Doppler, and color-flow Echocardiogram Patient Location: ICU Room #: 241 Status: routine BSA: 1.39 HR: 77 bpm BP: 113/64 mmHg Rhythm: RBBB Other Information Study Quality: Good Indications Limited echo for LV function and right heart pressures and function. (Complete echo done 11/28/20) 2D Dimensions RVDd: 33.29 mm IVSd: 13.07 (7-11mm) LVDd: 40.72 mm PWd: 12.82 (7-11mm) LVDs: 35.59 (25-40mm) Left Atrium: 39.19 (27-40mm) Aortic Valve AoV Peak Karthik.: 1.06 m/s AO Peak Gr.: 4.47 mmHg Tricuspid Valve TR Peak Karthik.: 2.43 m/s RAP Estimate: 12.00 mmHg TR Peak Gr.: 24.00 mmHg PA Pressure: 36.00 mmHg Left Ventricle [facility] [address] [place] [address] 2 D/M-MODE ECHOCARDIOGRAM Name: STORM AYERS Room #: 241-P ADM IN M.R.#: [id number] Admission: 12/23/20 Attend Phys: Sayra Monique Discharge: Date of : 42 Report #: [id number] The left ventricle is normal size. There is global hypokinesis of the left ventricle. Moderate concentric left ventricular hypertrophy. Left ventricular systolic function is severely decreased. LVEF 20%. Right Ventricle The right ventricle is normal size. Right ventricle is moderately hypokinetic. Atria Biatrial enlargement. Aortic Valve Aortic valve is trileaflet; moderately calcified. Trace aortic regurgitation. There is no aortic valvular stenosis. Mitral Valve Mitral valve leaflets are calcified. Moderate mitral annular calcification. Moderate to severe mitral regurgitation Tricuspid Valve The tricuspid valve is normal in structure. Moderate to severe tricuspid regurgitation. Estimated PAP is 35mmHg. Great Vessels The aortic root is normal in size. IVC is mildly dilated and collapses <50% with inspiration. Pericardium There is no pericardial effusion. Critical Notification Physician Notified <Conclusion> Left ventricular systolic function is severely decreased. LVEF 20%. Global LV dysfunction Biatrial enlargement. Aortic valve is trileaflet; moderately calcified. Trace aortic regurgitation, no stenosis. Mitral valve leaflets are calcified. Moderate mitral annular calcification. Moderate to severe mitral regurgitation Moderate to severe tricuspid regurgitation. Estimated pulmonary artery pressure of 35mmHg. There is no pericardial effusion. [facility] [address] [place] [address] 2 D/M-MODE ECHOCARDIOGRAM Name: ARMENSTORM M Room #: 241-P ADM IN M.R.#: [id number] Admission: 12/23/20 Attend Phys: Sayra Monique Discharge: Date of : 44 Report #: [id number] Compared to study dated November 28, 2020, severe LV dysfunction is new. Mitral regurgitation is substantially worse. <ELECTRONICALLY SIGNED> By: Ivan Buckley MD, [facility] 12/25/20 1149 1149 1149 Ivan Buckley MD, [facility] /INF
--- NOTE | 2020-12-25 12:57 | NUR ---
PT SBP ON ARTERIAL LINE REMAINED LOW. NOT A GOOD WAVEFORM OR BLOOD RETURN ON ARTERIAL LINE. PER DR. BOWER, USE AUTOMATIC BLOOD PRESSURE TO TITRATE GTTS. DR. RENTERIA WANTED FLOTRAC HOOKED UP TO PT. DR. RENTERIA THEN STARTED DOPAMINE FOR LOW SBP. DR. MYERS NOTIFIED OF POSITIVE SEPSIS SCREEN. DR. MYERS SPOKE IN DETAIL WITH PT DAUGHTER BRANDAN. A FAMILY MEETING WITH DR. MYERS IS SCHEDULED FOR 1500 TODAY. WILL CONTINUE TO MONITOR.
--- NOTE | 2020-12-25 15:34 | NUR ---
INITIAL ASSESSMENT: SW reviewed chart and spoke with nursing and attending physician. Pt was admitted from home due to hypoxia. Pt with hx of interstitial lung dx, CHF, RA, CKD stage 4. BOBBIN LOOSE END FINDER activated while pt was on CCU. Pt was transferred to ICU and is currently intubated and sedated. Discussion regarding possible transfer to [facility]. Pt is not stable for transfer. Attending physician is currently meeting with pt's family to discuss code status and plan of care. Per chart, pt lives at home. Pt has a cane and walker and has used [facility] in the past. Pt was discharged to [facility] in September from [facility]. Pt's PCP is DR. Mt Farmer. SW is following to assist as needed.
--- NOTE | 2020-12-25 16:14 | NUR ---
DR. MYERS HAD FAMILY MEETING WITH PT FAMILY. PT IS DNR AT THIS TIME. PER DR. MYERS, HOLD TAKING PT TO CT SCAN UNTIL 12/26/20 WHEN PT IS MORE STABLE. SPOKE WITH DR. RENTERIA REGARDING OUTCOME OF FAMILY MEETING. NOTIFIED DR. RENTERIA REGARDING ARTERIAL LINE NOT HAVING BLOOD RETURN OR A WAVE FORM. UNABLE TO OBTAIN ARTERIAL PRESSURE. INFOMRED DR. RENTERIA OF TITRATING VASOPRESSORS FROM BP CUFF PRESSURES. NO NEW ORDERS AT THIS TIME.
[2020-12-26] VITALS (91 sets, daily range): BP systolic 102–146; BP diastolic 55–85
--- NOTE | 2020-12-26 05:49 | NUR ---
PT FLUTTERS EYES AND MOVES ALL EXTREMETIES BUT DOES NOT FOLLOW COMMANDS. DECREASED PRESSOR REQUIREMENTS THROUGHOUT SHIFT.
[2020-12-26 06:06] LABS: HEMOGLOBIN 7.3 g/dL (11.1-15.9)
[2020-12-26 06:51] LABS: ALBUMIN 1.7 g/dL (3.4-5.0); CALCIUM 6.7 mg/dL (8.5-10.1); CREATININE 4.8 mg/dL (0.6-1.0); PHOSPHORUS 6.1 mg/dL (2.5-4.9); POTASSIUM 4.7 mmol/L (3.5-5.1)
--- NOTE | 2020-12-26 06:57 | HC ---
[facility] [place] [address] CONSULTATION Name: STORM AYERS Room #: 241-P ADM IN M.R.#: [id number] Admission: 12/23/20 Attend Phys: Sury Manzanares MD Discharge: Date of : 44 Report #: [id number] THIS REPORT FOR: cc: FAM - No family physician/PCP FAM - No family physician/PCP Isaak Patel MD ~ cc: Sury Manzanares MD, Colton Bennett MD, Ivan Buckley MD [facility], Radha Art MD, ____ ____ DATE OF SERVICE: 12/25/2020 PHYSICIAN REQUESTING: Dr. Manzanares. REASON FOR CONSULTATION: Elevated ferritin and cytopenia. HISTORY OF PRESENT ILLNESS: The patient is a 80-year-old female on the ventilator in [facility] ICU. She was admitted for shortness of breath. I also have access to some of the [facility] notes and she has been admitted there or seen in the ER multiple times for congestive heart failure and breathing troubles related to her interstitial lung disease. Here, she is currently on the ventilator. Her ferritin yesterday was 13,000, today at 17,000. Creatinine is stable at about 4.8. GGTP is normal. Transaminases are near normal. Absolute retic count is 0.05, rheumatoid factor of 310, greatly elevated C-reactive protein 289, greatly elevated total bilirubin 0.6, hemoglobin 7.7 yesterday. White count 16.2 without acute changes. It is mostly neutrophils. Platelets 272. CAT scan chest, abdomen and pelvis did not show any lymphadenopathy or hepatosplenomegaly, though there was some fluid pseudotumor type changes and also changes consistent with her known history of interstitial lung disease. It looks like she had a large gallstone, but was nonobstructing. PHYSICAL EXAMINATION: GENERAL: The patient is not bleeding. She is intubated. She has multiple central lines in place. VITAL SIGNS: Her height is 5 feet 4, 162.6 cm, weight 89 pounds or 40.4 kilograms. Recent blood pressure is 113/64, respirations 24, O2 sat 100% on the ventilator, temperature 97.5 axillary. HEENT: Face appears symmetric. No blood from nose or mouth or ears or central line insertions. LUNGS: Somewhat coarse bilaterally. HEART: Regular rate. ABDOMEN: No masses, not bloated. EXTREMITIES: Without clubbing, cyanosis or edema. PAST MEDICAL HISTORY: Notable for the history of hypertension, coronary artery disease, rheumatoid arthritis, peripheral vascular disease, interstitial lung [address] [address] CONSULTATION Name: STORM AYERS Room #: 241-P [facility] IN M.R.#: [id number] Admission: 12/23/20 Attend Phys: Sury Manzanares MD Discharge: Date of : 44 Report #: [id number] disease and chronic kidney disease. She is also reported to have carotid stenosis in the past, also dyslipidemia, also gout. Also, past myocardial infarction and a tubal ligation. SOCIAL HISTORY: She is , has four children. Former smoker, quit in 1985. No smokeless tobacco. Alcohol, yes, 1-2 times per week in the past. This is per the [facility] chart. FAMILY HISTORY: Mother with heart disease. Mother with hypothyroidism. Father had a heart attack. Sister and brother both had goiters. CURRENT MEDICATIONS: In the hospital include pantoprazole 20 mg daily IV, fentanyl IV, midazolam p.r.n., vasopressin drip as needed, sodium bicarbonate IV norepinephrine drip p.r.n., vancomycin 500 mg q.24, aspirin 81 daily. Received flu vaccine on 12/24/2020, oxycodone p.r.n., clindamycin 300 mg b.i.d., methylprednisolone 40 mg t.i.d., atorvastatin 40 mg at bedtime, budesonide 0.25 respiratory therapy b.i.d., cough syrup as needed, nitroglycerin topically had been given and discontinued. ASSESSMENT AND PLAN: 1. Elevated ferritin with cytopenia. 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 However, the patient does not have the typical severe cytopenia that is new that would suggest this. Also, does not have fevers or splenomegaly that are unexplained, though this needs to be a consideration. Because of the concern, we will continue monitoring. We will also check a peripheral smear. We will consult Rheumatology. We will check a serum immunofixation electrophoresis and serum protein electrophoresis and serum free light chain ratio. Note, there had been some concern 3 months ago about a serum protein electrophoresis showing a M-protein of 0.48, but the SIFE was unremarkable. Could give consideration to bone marrow biopsy, but the patient is too sick to consider this at this time. 2. Respiratory failure. We will defer to Pulmonary. 3. Interstitial lung disease. Defer to Pulmonary. 4. Recent non-Q myocardial infarction. Defer to Cardiology. 5. Coronary artery disease. Defer to Cardiology. 6. Hyperlipidemia. Continue current meds. 7. Renal insufficiency. Defer to Nephrology. 8. Rheumatoid arthritis history. We will consult Rheumatology. <ELECTRONICALLY SIGNED> By: Isaak Patel MD 12/26/20 0657 [id number] [id number] Isaak Patel MD /luz marina
[2020-12-26 08:05] LABS: ABSOLUTE NEUTROPHILS 9.2 thou/uL (1.4-8.2); BASOPHILS 0.4 % (0.0-2.0); HEMATOCRIT 21.8 % (37.0-47.0); HEMOGLOBIN 7.2 gm/dL (12.0-15.0); LYMPHOCYTES 2.8 % (24.0-44.0); MCH 27.6 pg (26.0-34.0); MCHC 32.8 g/dL (28.0-37.0); MCV 84.1 fL (80.0-100.0); MONOCYTES 6.3 % (1.0-8.0); POLYS 90.5 % (36.0-66.0); RBC 2.59 mil/uL (4.20-5.00); RDW 16.2 % (10.5-14.5); WBC 10.2 thou/uL (4.0-11.0)
[2020-12-26 08:12] LABS: PLATELET COUNT 141 thou/uL (150-400)
--- NOTE | 2020-12-26 11:43 | NUR ---
SW reviewed chart and spoke with nursing and attending physician. Pt remains in ICU. Pt is intubated and sedated. Family meeting held yesterday afternoon. Pt's code status changed to DNR. Pt's family to discuss plan of care. No weekend discharge planned. THIERRY is following and is available to assist as needed.
[2020-12-26 11:47] LABS: URINE BILIRUBIN NEGATIVE (Negative); URINE BLOOD 3+ (Negative); URINE COLOR YELLOW; URINE GLUCOSE-RANDOM* NEGATIVE (Negative); URINE KETONES TRACE (Negative); URINE NITRITE-REFLEX NEGATIVE (Negative); URINE PROTEIN (DIPSTICK) 2+ (Negative); URINE UROBILINOGEN 0.2 E.U./dl (0.2-1.0)
[2020-12-26 11:48] LABS: URINE CLARITY HAZY; URINE LEUKOCYTES-REFLEX 1+ (Negative)
[2020-12-26 12:01] LABS: CASTS None Seen /LPF (None Seen); MUCUS 0-3 Light strn/LPF (None Seen); SQUAMOUS 0-3 Few /LPF (0-3)
[2020-12-26 12:02] LABS: URINE WBC-REFLEX 0-5 Rare /HPF (0-5)
[2020-12-26 12:03] LABS: BACTERIA-REFLEX 1-9 Few /HPF (None Seen); CRYSTALS None Seen /LPF (None Seen)
[2020-12-27] VITALS (57 sets, daily range): BP systolic 97–171; BP diastolic 58–94
[2020-12-27 03:02] LABS: ALBUMIN 1.6 g/dL (3.4-5.0); CALCIUM 6.4 mg/dL (8.5-10.1); PHOSPHORUS 5.5 mg/dL (2.5-4.9); POTASSIUM 3.9 mmol/L (3.5-5.1)
--- NOTE | 2020-12-27 05:57 | NUR ---
PT FLICKERS EYES BUT DOES NOT FOLLOW COMMANDS. REMAINS ON VENTILATOR.
[2020-12-27 15:38] LABS: ABSOLUTE NEUTROPHILS 11.3 thou/uL (1.4-8.2); BASOPHILS 0.3 % (0.0-2.0); HEMATOCRIT 23.4 % (37.0-47.0); HEMOGLOBIN 7.6 gm/dL (12.0-15.0); MCH 27.2 pg (26.0-34.0); MCHC 32.3 g/dL (28.0-37.0); PLATELET COUNT 129 thou/uL (150-400); POLYS 92.7 % (36.0-66.0); RBC 2.78 mil/uL (4.20-5.00); RDW 15.8 % (10.5-14.5); WBC 12.2 thou/uL (4.0-11.0)
[2020-12-27 18:06] LABS: KAPPA FREE LIGHT CHAINS 285.2 mg/L (3.3-19.4); KAPPA/LAMBDA RATIO 0.85 (0.26-1.65); LAMBDA FREE LIGHT CHAINS 334.7 mg/L (5.7-26.3)
--- NOTE | 2020-12-27 18:12 | NUR ---
PATIENT SLOWLY PROGRESSING TOWARDS THE PLAN OF CARE. NO NEED FOR VASOPRESSORS OR HEMODYNAMIC MONITORING.
[2020-12-28] VITALS (24 sets, daily range): BP systolic 105–181; BP diastolic 60–105
--- NOTE | 2020-12-28 06:00 | NUR ---
INTUBATED FENTANYL GTT AT 50 MCG FOLLOWS NO COMMANDS FLITTERING OF EYES REMAINS A DNR NOT PROGRESSING TOWARD GOALS
[2020-12-28 06:22] LABS: ABSOLUTE NEUTROPHILS 10.1 thou/uL (1.4-8.2); BASOPHILS 0.2 % (0.0-2.0); HEMATOCRIT 24.2 % (37.0-47.0); HEMOGLOBIN 8.1 gm/dL (12.0-15.0); LYMPHOCYTES 2.7 % (24.0-44.0); MCH 28.3 pg (26.0-34.0); MCHC 33.5 g/dL (28.0-37.0); MCV 84.4 fL (80.0-100.0); MONOCYTES 5.5 % (1.0-8.0); PLATELET COUNT 134 thou/uL (150-400); POLYS 91.6 % (36.0-66.0); RBC 2.86 mil/uL (4.20-5.00); RDW 15.5 % (10.5-14.5)
[2020-12-28 06:43] LABS: ALBUMIN 1.6 g/dL (3.4-5.0); CALCIUM 6.4 mg/dL (8.5-10.1); CREATININE 4.9 mg/dL (0.6-1.0); PHOSPHORUS 5.7 mg/dL (2.5-4.9); POTASSIUM 3.4 mmol/L (3.5-5.1)
--- NOTE | 2020-12-28 13:39 | HC ---
[facility] [place] [address] CONSULTATION Name: STORM AYERS Room #: 241-P [facility] IN M.R.#: [id number] Admission: 12/23/20 Attend Phys: Sury Manzanares MD Discharge: Date of : 44 Report #: [id number] THIS REPORT FOR: cc: FAM - No family physician/PCP FAM - No family physician/PCP Mandi Summers DO ~ DATE OF SERVICE: 12/28/2020 NEUROLOGY CONSULT HISTORY OF PRESENT ILLNESS: The patient is a 80-year-old female who presented to the Emergency Room on 12/23/2020 with shortness of breath. I was able to speak to the patient's daughter who states that the patient has been hospitalized previous to this, 4 times. Most recently, she was at [facility] and her daughter's understanding was that her mother's heart was not pumping as it should and that she had congestive heart failure. The patient also has a history of pulmonary sarcoidosis. On 12/24/2020, the patient required intubation. The patient is still intubated. The patient was on sedation with fentanyl 50 mcg, which was discontinued this morning. The patient is not awake and has no purposeful movements. PAST MEDICAL HISTORY: Hypertension, hyperlipidemia, congestive heart failure, pulmonary sarcoidosis, rheumatoid arthritis, peripheral vascular disease. PAST SURGICAL HISTORY: Right carotid endarterectomy and left cataract surgery. MEDICATIONS IN HOSPITAL: Albuterol q. 4 hours, aspirin 81 mg daily, atorvastatin 40 mg daily, budesonide b.i.d., carvedilol 25 mg b.i.d., Maxipime 1 gram daily, furosemide 80 mg t.i.d., heparin 5000 units b.i.d., hydrocortisone 100 mg q. 6 hours, pantoprazole 20 mg daily. ALLERGIES: PENICILLIN. VITAL SIGNS: Temperature 36.7, pulse rate 64, respiratory rate 20, blood pressure 167/87, bedside pulse oximetry 100% on the ventilator. LABORATORY DATA: Hematology: White blood cell count 11, hemoglobin 8.1, hematocrit 24.2, MCV 84.4, platelet count 134,000. INR 1.13. Urinalysis: 2+ protein, trace ketones, 3+ blood, 1+ leukocyte esterase. Chemistry: Sodium 134, potassium 3.4, chloride 93, carbon dioxide 36, BUN 79, creatinine 4.9, GFR 10, glucose 108. Lactic acid 1.6, calcium 6.4, phosphorus 5.7, magnesium 2.2. Iron 31, TIBC 193. Iron saturation 16%. Liver functions normal. C-reactive protein 289. BNP over 70,000. NEUROLOGIC: The patient's eyes are not opened. She keeps them forcefully closed. The left pupil is irregular and secondary to cataract surgery, the [address] [address] CONSULTATION Name: STORM AYERS Room #: 241-P ADM IN M.R.#: [id number] Admission: 12/23/20 Attend Phys: Sury Manzanares MD Discharge: Date of : 44 Report #: [id number] right pupil is mid position and not reactive to light. Corneal reflexes are present. When I walked in the room, I called her name and she did open her eyes and then closed them again, and then, she had blinking of her eyes. There was no spontaneous movement of the extremities. I asked her to squeeze my hand, which she may have done intermittently. I asked her to move her toes, which she did on one occasion, but could not do this consistently. Reflexes are trace throughout. Plantar responses are flexor bilaterally. The patient cannot cooperate with [id number]. IMPRESSION AND PLAN: The patient is encephalopathic. However, fentanyl was just discontinued several hours ago, so it will take more time to know what her mentation will be like. We should have a better idea on Tuesday. In the meantime, because there was some right gaze preference when I initially saw her, I have ordered a CT scan of the head for today and we will order an MRI of the head for tomorrow along with an electroencephalogram. In the meantime, I will begin low-dose levetiracetam to see if the eye blinking stops. However, if the electroencephalogram shows no evidence of seizure activity, then levetiracetam should be discontinued because even at a low dose, in someone of this age, it can cause sedation. I also spoke with the patient's family. I spoke with her daughter and grandsons, and I explained that it will take more time to know whether or not she will become more alert. I thank you for your kind referral of the patient. As of Tuesday, Dr. Scanlon will follow the patient. <ELECTRONICALLY SIGNED> By: Mandi Summers DO 12/28/20 1339 1050 1153 Mandi Summers DO /nt
--- NOTE | 2020-12-28 17:59 | NUR ---
Neurology consulted today. Fent[place] 82912/28/20. No other sedation given. CT Head completed. Paitent not progressing towards goal.
[2020-12-29] VITALS (24 sets, daily range): BP systolic 117–176; BP diastolic 77–104
[2020-12-29 05:35] LABS: ABSOLUTE NEUTROPHILS 11.3 thou/uL (1.4-8.2); BASOPHILS 0.2 % (0.0-2.0); HEMATOCRIT 26.7 % (37.0-47.0); HEMOGLOBIN 8.6 gm/dL (12.0-15.0); LYMPHOCYTES 2.9 % (24.0-44.0); MCH 27.4 pg (26.0-34.0); MCHC 32.1 g/dL (28.0-37.0); MCV 85.4 fL (80.0-100.0); MONOCYTES 4.5 % (1.0-8.0); PLATELET COUNT 158 thou/uL (150-400); POLYS 92.4 % (36.0-66.0); RBC 3.13 mil/uL (4.20-5.00); RDW 15.2 % (10.5-14.5); WBC 12.3 thou/uL (4.0-11.0)
--- NOTE | 2020-12-29 06:00 | NUR ---
REMAINS INTUBATED FOLLOWS NO COMMMANDS S/C FOR MRI OF BRAIN THIS AM NOT PROGRESSING TOWARD GOALS
[2020-12-29 06:07] LABS: ALBUMIN 1.6 g/dL (3.4-5.0); CALCIUM 6.4 mg/dL (8.5-10.1); CREATININE 5.2 mg/dL (0.6-1.0); PHOSPHORUS 6.7 mg/dL (2.6-4.7); POTASSIUM 3.3 mmol/L (3.5-5.1)
--- NOTE | 2020-12-29 07:17 | EKG ---
[address] [place] [address] ELECTROCARDIOGRAM REPORT Name: ARMENSTORM Sayra Room #: 241-P ADM IN M.R.#: [id number] Admission: 12/23/20 Attend Phys: Sury Manzanares MD Discharge: Date of : 42 Report #: [id number] [facility] Test Date: 2020-12-28 Test Time: 16:05:23 Pat Name: STROM AYERS Department: Room: 241 P Gender: F Auto Transmission Mechanic: CELIA : 1940 Requested By: Colton Bennett Order Number: [id number] : Gabriel Price Measurements Intervals Malcolm Rate: 122 P: 0 IN: 166 QRS: 178 QRSD: 111 T: -84 QT: 389 QTc: 555 Interpretive Statements Sinus tachycardia with irregular rate RVH with secondary repolarization abnrm Prolonged QT interval Compared to ECG 12/25/2020 07:16:27 Right ventricular hypertrophy now present Prolonged QT interval now present Sinus rhythm no longer present Electronically Signed On 12-29-2020 7:17:19 E BUSINESS CONSULTANT by Gabriel Price [email or web address] <ELECTRONICALLY SIGNED> By: Gabriel Price MD, [facility] 12/29/20 0717 1605 1605 Gabriel Price MD, [facility] /EPI
--- NOTE | 2020-12-29 09:48 | EKG ---
[place] [address] [address] [facility] [place] [address] ELECTROCARDIOGRAM REPORT Name: STORM AYERS Room #: 241-P ADM IN M.R.#: [id number] Admission: 12/23/20 Attend Phys: Sury Manzanares MD Discharge: Date of : 44 Report #: [id number] [facility] Test Date: 2020-12-29 Test Time: 08:33:01 Pat Name: STORM AYERS Department: Room: 241 P Gender: F Plaster Helper: NATASHA : 1940 Requested By: Ivan Buckley Order Number: [id number] MD: Ivan Buckley Measurements Intervals W[place] Rate: 114 P: AK: QRS: 28 QRSD: 114 T: -88 QT: 359 QTc: 495 Interpretive Statements Atrial flutter with predominant 2:1 AV block IRBBB Repol abnrm suggests ischemia, inferior and lateral leads Compared to ECG 12/28/2020 16:05:23 Lateral T wave abnormality is more pronounced Electronically Signed On 12-29-2020 9:48:05 FELT HAT STEAMER by Ivan Buckley [email or web address] <ELECTRONICALLY SIGNED> By: Ivan Buckley MD, [facility] 12/29/2048 2 2 Ivan Buckley MD, [facility] /EPI
[2020-12-29 15:50] LABS: HEMATOCRIT 26.9 % (37.0-47.0); HEMOGLOBIN 8.7 gm/dL (12.0-15.0); MCH 27.3 pg (26.0-34.0); MCHC 32.2 g/dL (28.0-37.0); MCV 84.9 fL (80.0-100.0); RBC 3.17 mil/uL (4.20-5.00); RDW 15.6 % (10.5-14.5); WBC 15.2 thou/uL (4.0-11.0)
--- NOTE | 2020-12-29 16:52 | NUR ---
CASE DISCUSSED WITH CARE TEAM DURING ROUNDS THIS AM. PT REMAINS ON VENT. PT IS A DNR. PT WAS TO HAVE MRI THIS AFTERNOON. HOSPITALIST INIDCATED SHE PLAND TO DISCUSS POC WITH PT'S DTR. CM FOLLOWING REGARDING CONTINUED NEEDS.
[2020-12-29 18:06] LABS: GLOBULIN TOTAL 3.5 g/dL (2.2-3.9); M-SPIKE Not Observed g/dL (Not Observed)
[2020-12-30] VITALS (16 sets, daily range): BP systolic 93–144; BP diastolic 48–102
--- NOTE | 2020-12-30 06:00 | NUR ---
INTUBATED. AFIB FLUTTER REMAINS A DNR NOT FOLLOWING ANY COMMANDS NOT PROGRESSING TOWARD GOALS
[2020-12-30 06:18] LABS: ABSOLUTE NEUTROPHILS 9.9 thou/uL (1.4-8.2); BASOPHILS 0.5 % (0.0-2.0); HEMATOCRIT 26.5 % (37.0-47.0); HEMOGLOBIN 8.6 gm/dL (12.0-15.0); MCH 27.7 pg (26.0-34.0); MCHC 32.3 g/dL (28.0-37.0); MCV 85.5 fL (80.0-100.0); PLATELET COUNT 142 thou/uL (150-400); POLYS 91.5 % (36.0-66.0); RDW 15.6 % (10.5-14.5); WBC 10.8 thou/uL (4.0-11.0)
[2020-12-30 06:33] LABS: ALBUMIN 1.4 g/dL (3.4-5.0); CALCIUM 6.2 mg/dL (8.5-10.1); CREATININE 5.3 mg/dL (0.6-1.0); POTASSIUM 3.6 mmol/L (3.5-5.1)
--- NOTE | 2020-12-30 07:26 | EKG ---
[place] [address] [facility] [place] [address] ELECTROCARDIOGRAM REPORT Name: STORM AYERS Room #: 241-P ADM IN M.R.#: [id number] Admission: 12/23/20 Attend Phys: Sury Manzanares MD Discharge: Date of : 42 Report #: [id number] [facility] Test Date: 2020-12-30 Test Time: 07:19:51 Pat Name: SOTRM AYERS Department: Room: 241 P Gender: F Ostomy Care Nurse: NATASHA : 1940 Requested By: Ivan Buckley Order Number: [id number] MD: Gabriel Price Measurements Intervals [place] Rate: 106 P: CT: QRS: 36 QRSD: 75 T: 257 QT: 434 QTc: 577 Interpretive Statements Atrial fibrillation Paired ventricular premature complexes Probable LVH with secondary repol abnrm Abnormal T, probable ischemia, anterior leads Compared to ECG 12/29/2020 08:33:01 Ventricular premature complex(es) now present T-wave abnormality now present Atrial flutter no longer present 2:1 AV block no longer present Possible ischemia still present Electronically Signed On 12-30-2020 7:25:50 COMMUNITY PLANNING TECHNICIAN by Gabriel Price [email or web address] <ELECTRONICALLY SIGNED> By: Gabreil Price MD, FAC 12/30/20724 8 8 Gabriel Price MD, [facility] /EPI
--- NOTE | 2020-12-30 10:43 | NUR ---
Paged Dr. Manzanares to inform her that patient daughter would like to speak with her. Daughter Jordana at bedside.
--- NOTE | 2020-12-30 13:08 | NUR ---
Patient extubated to comfort measures at 1255 with RT, medication given prior to extubation for comfort. Jordana patients daughter in room with sister. Renal MD attempted to speak with family, however, family refused to have a conversation over the phone. All of the families questions and concerns are addressed, patient in no signs of distress, resting comfortably.
--- NOTE | 2020-12-30 18:36 | NUR ---
Patient transitioned to comfort care today. Patient extubated at 1255, family at bedside throughout the day. Jordana (daughter) would like to be informed when patient starts to decompensate with hopes to be able to be by her side when she passes. All questions and concerns were addressed.
--- NOTE | 2020-12-30 20:05 | NUR ---
PER NURSING DIESEL PLANT OPERATOR, 2 FAMILY MEMBERS AT A TIME MAY STAY AT BEDSIDE WITH PATIENT, EVEN IN OUTSIDE OF VISITING HOURS. NOTIFIED PT'S DTR BRANDAN.
--- NOTE | 2020-12-30 23:30 | NUR ---
PT'S DTR BRANDAN CALLED UNIT FOR UPDATE. PT RESTING COMFORTABLY IN BED. BP STABLE. SPO2 100% ON 2L NC. COOL BODY TEMP. WARM BLANKETS APPLIED FOR COMFORT. NO LABORED BREATHING OR RESP DISTRESS NOTED. WILL CONTINUE TO MONITOR.
[2020-12-31] VITALS (7 sets, daily range): BP systolic 126–149; BP diastolic 77–90
--- NOTE | 2020-12-31 07:40 | NUR ---
NO SIGNIFICANT CHANGES DURING THE NIGHT. PT RESTED CALMLY IN BED. RESPIRATIONS SHALLOW BUT NO RESPIRATORY DISTRESS NOTED. PT IS DNR AND ON COMFORT CARE. DTR BRANDAN UPDATED MULTIPLE TIMES DURING THE NIGHT. DTR BRANDAN PRESENT AT BEDSIDE NOW. REPORT GIVEN TO ONCOMING NURSE.
--- NOTE | 2020-12-31 12:35 | NUR ---
Pt was extubated yesterday and now on comfort measures. Dye Weigher visited with pt's dtr Jordana at bedside this am and outside the hospital dnr form provided for her signature. Support provided and hospice options discussed. Home is not an option. Pt's dtr indicates preference for Hospice house eval vs GIP. Referral faxed and called to intake at hospice. They will be out to eval pt at 2pm today and visit with her dtr who remains at bedside. Will follow.
--- NOTE | 2020-12-31 12:52 | NUR ---
CONSULT [id number] WAS COMLETED BY THIS PARTS COUNTERPERSON ON THIS DAY. I WAS ABLE TO VISIT WITH THE PATIENT'S PRIMARY CAREGIVER, HER JENNIFER DIXON. PT. WAS NOT RESPONSIVE, BUT OPENED HER EYES SOME WE PRAYED TOGETHER. THE OTHER DAUGHTER SHOWED UP DURING OUR VISIT. WE DID LIFE REVIEW AND DISCUSSED THEIR LOVE FOR THEIR MOTHER. WE DISCUUSED THE END OF LIFE PROCESS AND WHAT A GOOD DECISION WAS MADE TO KEEP THEIR MOTHER COMFORTABLE.
--- NOTE | 2020-12-31 15:09 | NUR ---
[facility] HERE TO EVAL PATIENT, STATES PATIENT IS ON LIST FOR NEXT AVAILABLE BED TOMORROW. DAUGHTERS AWARE AND AT BEDSIDE. OUTSIDE HOSPITAL DNR FORM SIGNED AND ON PATIENT CHART.
--- NOTE | 2021-01-01 03:41 | NUR ---
Assessment as documented.Patient been resting in no acute distress.on comfort care with plan for discharge today to [facility].No new event overnight.Pt been calm.keeps eyes closed.MoveS face side to side upon tactile stimuli.No verbal response.vss been stable.
--- NOTE | 2021-01-01 10:02 | NUR ---
Hospice [facility] can accept this morning at 11am. [facility] arranged for 11am pickup. Dtr Jordana at bedside and agreeable. Nursing to call report to [phone]. DC packet with DNR form ready to be sent with the pt. All parties updated.
== END 2021-01-01 11:00 | disposition hospice, inpatient (51) | DRG 870 ==
LOC: ER 11:10 → 3W 13:52 → 2N 13:52 → ICU 13:52 → EROBS 13:52 → 3W 17:56 → 2N 12-24 06:16 → ICU 12-24 21:55
PROVIDERS: Internal Medicine; Internal Medicine Hematology & Oncology; Internal Medicine Nephrology; Nurse Practitioner; Nurse Practitioner Family; Student in an Organized Health Care Education/Training Program; ADMIT Hospitalist; ATTEND Hospitalist
PROC: 30233N1 Transfusion of Nonautologous Red Blood Cells into Peripheral Vein, Percutaneous Approach (ICD-10-PCS; principal; 2020-12-24)
PROC: 02HV33Z Insertion of Infusion Device into Superior Vena Cava, Percutaneous Approach (ICD-10-PCS; principal; 2020-12-24)
PROC: 03HY32Z Insertion of Monitoring Device into Upper Artery, Percutaneous Approach (ICD-10-PCS; 2020-12-24)
PROC: 4A133J1 Monitoring of Arterial Pulse, Peripheral, Percutaneous Approach (ICD-10-PCS; 2020-12-24)
PROC: 4A133B1 Monitoring of Arterial Pressure, Peripheral, Percutaneous Approach (ICD-10-PCS; 2020-12-24)
PROC: 5A1955Z Respiratory Ventilation, Greater than 96 Consecutive Hours (ICD-10-PCS; 2020-12-25)
PROC: 0BH17EZ Insertion of Endotracheal Airway into Trachea, Via Natural or Artificial Opening (ICD-10-PCS; 2020-12-25)
DX: A41.9 Sepsis, unspecified organism (principal); J96.21 Acute and chronic respiratory failure with hypoxia; E43 Unspecified severe protein-calorie malnutrition; I50.43 Acute on chronic combined systolic (congestive) and diastolic (congestive) heart failure; J18.9 Pneumonia, unspecified organism; G93.41 Metabolic encephalopathy; R65.21 Severe sepsis with septic shock; I63.9 Cerebral infarction, unspecified; I21.A1 Myocardial infarction type 2; N17.9 Acute kidney failure, unspecified; I13.0 Hypertensive heart and chronic kidney disease with heart failure and stage 1 through stage 4 chronic kidney disease, or unspecified chronic kidney disease; Z68.1 Body mass index [BMI] 19.9 or less, adult; N18.4 Chronic kidney disease, stage 4 (severe); I42.9 Cardiomyopathy, unspecified; Z66 Do not resuscitate; D69.6 Thrombocytopenia, unspecified; I73.9 Peripheral vascular disease, unspecified; M06.9 Rheumatoid arthritis, unspecified; I16.0 Hypertensive urgency; I65.29 Occlusion and stenosis of unspecified carotid artery; E78.5 Hyperlipidemia, unspecified; I65.23 Occlusion and stenosis of bilateral carotid arteries; D63.8 Anemia in other chronic diseases classified elsewhere; D75.9 Disease of blood and blood-forming organs, unspecified; I48.91 Unspecified atrial fibrillation; I08.1 Rheumatic disorders of both mitral and tricuspid valves; I25.10 Atherosclerotic heart disease of native coronary artery without angina pectoris; D86.0 Sarcoidosis of lung; Z20.822 Contact with and (suspected) exposure to COVID-19; Z98.51 Tubal ligation status; Z79.899 Other long term (current) drug therapy; Z88.0 Allergy status to penicillin; Z95.5 Presence of coronary angioplasty implant and graft; Z82.49 Family history of ischemic heart disease and other diseases of the circulatory system; Z83.49 Family history of other endocrine, nutritional and metabolic diseases; Z87.891 Personal history of nicotine dependence
CPT/HCPCS: 10078; 10196; 10879